=== PATIENT | female | born 1985 | race African-American/Black ===

== ENCOUNTER 2016-11-26 14:40 | Emergency (ER) | payer SELFPAY ==
[~2016-11-26] VITALS: Ht 175.3 cm; Wt 71.0 kg
[2016-11-26] MEDS ORDERED: IBUPROFEN 800MG TABLET PO ONE (17:15)
[2016-11-26] MEDS ORDERED: KETOROLAC 60MG/2ML VIAL IM ONE (18:30)
[2016-11-26 18:58] VITALS: BP 115/76
== END 2016-11-26 18:57 | disposition home or self-care (01) ==
LOC: ER 15:13
DX: S43.101A Unspecified dislocation of right acromioclavicular joint, initial encounter (principal); V89.2XXA Person injured in unspecified motor-vehicle accident, traffic, initial encounter; Y93.89 Activity, other specified; Y92.89 Other specified places as the place of occurrence of the external cause; Y99.8 Other external cause status
CPT/HCPCS: 70450; 70486; 72125; 72170; 73030; 73060; 81025; 96372; 99284; J1885; A4565